=== PATIENT | female | born 1965 | race Hispanic/Latino ===

== ENCOUNTER → 2019-02-04 10:15 | Outpatient (CLI) | payer OTHER, SELFPAY ==
[2019-02-04 11:14] LABS: Add Manual Diff / Slide Review NO; Basophils Absolute Auto 0 /uL (0-100); Basophils Percent Auto 0.7 % (0-2); Eosinophils Absolute Auto 100 /uL (0-450); Eosinophils Percent Auto 2.4 % (2-4); Hematocrit 42.7 % (36-46); Hemoglobin 14.5 g/dL (12.0-16.0); Lymphocytes Absolute Auto 2700 /uL (1100-4500); Lymphocytes Percent Auto 44.3 % (25-40); Mean Corpuscular HGB Conc 33.9 % (30-36); Mean Corpuscular Hemoglobin 31.1 PG (26-34); Mean Corpuscular Volume 91.6 fL (80-100); Monocytes Absolute Auto 400 /uL (0-900); Monocytes Percent Auto 7.3 % (3-14); Neutrophils Absolute Auto 2700 /uL (1500-7000); Neutrophils Percent Auto 45.3 % (50-75); Platelet Count 206 X10^3/uL (150-400); Red Blood Cell Count 4.66 X10^6/uL (4.0-5.2); Red Cell Distribution Width 13.3 % (11.6-14.8)
[2019-02-04 11:24] LABS: Alanine Aminotransferase 24 IU/L (9-52); Albumin 4.4 g/dL (3.5-5.0); Albumin Globulin Ratio 1.4 (1.0-2.8); Alkaline Phosphatase 92 U/L (38-126); Aspartate Aminotransferase 22 IU/L (14-36); Bilirubin Total 0.6 mg/dL (0.2-1.3); Blood Urea Nitrogen 14 mg/dL (7-17); Carbon Dioxide 29 mmol/L (22-32); Chloride 105 mmol/L (98-107); Cholesterol 175 mg/dL (140-199); Estimated Glomerular Filt Rate > 60.0 mL/min (>60); Globulin 3.2 g/dL (1.7-4.1); Glucose 93 mg/dL (70-100); HDL Cholesterol 49 mg/dL (40-60); HEMOLYSIS < 15 (0-50); LDL Cholesterol Calculated 93 mg/dL (<100); Potassium 4.2 mmol/L (3.4-5.1); Sodium 141 mmol/L (137-145); Total Protein 7.6 g/dL (6.3-8.2); Triglycerides 163 mg/dL (35-150)
[2019-02-04 12:38] LABS: Thyroid Stimulating Hormone 1.54 uIU/mL (0.47-4.68)
== END ==
PROVIDERS: PCP Physician Assistant; Visit Provider Physician Assistant
DX: R53.83 Other fatigue (principal); Z13.220 Encounter for screening for lipoid disorders; Z13.6 Encounter for screening for cardiovascular disorders; Z00.00 Encounter for general adult medical examination without abnormal findings
CPT/HCPCS: 36415; 80053; 80061; 84443; 85025

== ENCOUNTER → 2019-11-03 15:30 | Outpatient (CLI) | payer OTHER, SELFPAY ==
[2019-11-04 16:10] LABS: Fecal Immunochemical Test Negative (Negative)
== END ==
PROVIDERS: PCP Nurse Practitioner Family; Referring Provider Nurse Practitioner Family; Visit Provider Nurse Practitioner Family
DX: Z12.11 Encounter for screening for malignant neoplasm of colon (principal)
CPT/HCPCS: 82274

== ENCOUNTER → 2019-11-05 10:59 | Outpatient (CLI) | payer OTHER, SELFPAY ==
--- NOTE | 2019-11-05 11:05 | DI.RAD.S_ITS ---
PROCEDURE: XR RIBS LT 2V INDICATIONS: left upper quadrant pain TECHNIQUE: 2 views of the left ribs were acquired. COMPARISON: None. FINDINGS: Surgical changes and devices: None. Bones and chest wall: No fractures or dislocations. No suspicious bony lesions. Overlying soft tissues appear unremarkable. Lungs and pleura: The visualized lung appears clear. No pleural effusions or pneumothorax are visible. IMPRESSION: Negative left rib series. If there are persistent symptoms or clinical suspicion for pathology, then repeat radiographs or advanced imaging (CT, MRI or bone scan) should be considered for further evaluation. Dictated by: Alex Zabala M.D. on 11/05/2019 at 13:00 Approved by: Alex Zabala M.D. on 11/05/2019 at 13:02
[2019-11-05 11:56] LABS: Add Manual Diff / Slide Review NO; Basophils Absolute Auto 0 /uL (0-100); Basophils Percent Auto 0.8 % (0-2); Eosinophils Absolute Auto 200 /uL (0-450); Eosinophils Percent Auto 2.6 % (2-4); Hematocrit 42.6 % (36-46); Hemoglobin 14.7 g/dL (12.0-16.0); Lymphocytes Absolute Auto 2900 /uL (1100-4500); Lymphocytes Percent Auto 46.8 % (25-40); Mean Corpuscular HGB Conc 34.6 % (30-36); Mean Corpuscular Hemoglobin 31.4 PG (26-34); Mean Corpuscular Volume 90.7 fL (80-100); Monocytes Absolute Auto 500 /uL (0-900); Monocytes Percent Auto 7.5 % (3-14); Neutrophils Absolute Auto 2600 /uL (1500-7000); Neutrophils Percent Auto 42.3 % (50-75); Platelet Count 217 X10^3/uL (150-400); Red Blood Cell Count 4.69 X10^6/uL (4.0-5.2); Red Cell Distribution Width 13.5 % (11.6-14.8); White Blood Cell Count 6.3 X10^3/uL (4.5-11.0)
[2019-11-05 12:00] LABS: Alanine Aminotransferase 58 IU/L (<35); Albumin 4.5 g/dL (3.5-5.0); Albumin Globulin Ratio 1.4 (1.0-2.8); Alkaline Phosphatase 112 U/L (38-126); Aspartate Aminotransferase 30 IU/L (14-36); BUN Creatinine Ratio 22.7 (6-22); Bilirubin Total 0.9 mg/dL (0.2-1.3); Blood Urea Nitrogen 17 mg/dL (7-17); Calcium 9.4 mg/dL (8.4-10.2); Carbon Dioxide 28 mmol/L (22-32); Chloride 104 mmol/L (98-107); Estimated Glomerular Filt Rate > 60.0 mL/min (>60); Globulin 3.3 g/dL (1.7-4.1); Glucose 109 mg/dL (70-100); HEMOLYSIS < 15 (0-50); Potassium 4.3 mmol/L (3.4-5.1); Sodium 140 mmol/L (137-145); Total Protein 7.8 g/dL (6.3-8.2)
[2019-11-05 13:12] LABS: Appearance Urine UA SL CLOUDY; Bilirubin Urine UA NEGATIVE (NEGATIVE); Color Urine UA YELLOW; Glucose Urine UA NEGATIVE (Negative); Ketones Urine UA NEGATIVE (NEGATIVE); Leukocyte Esterase Urine UA 2+ (NEGATIVE); Nitrite Urine UA NEGATIVE (Negative); Occult Blood Urine UA 2+ (Negative); Protein Urine UA NEGATIVE (Negative); Urobilinogen Urine UA 0.2 E.U./dL (0.2)
[2019-11-05 13:18] LABS: pH Urine UA 6.5 (4.5-8.0)
[2019-11-05 13:19] LABS: Bacteria Urine Many (>30); Culture Indicated Urine Cult Not Indicated; RBC Urine 10-30/HPF (0-5/HPF); Squamous Epithelial Cell Urine 10-30 /HPF (0-5/HPF); WBC Urine 10-30/HPF (0-5/HPF)
== END ==
PROVIDERS: PCP Nurse Practitioner Family; Referring Provider Nurse Practitioner Family; Visit Provider Nurse Practitioner Family
DX: R07.81 Pleurodynia (principal); R10.12 Left upper quadrant pain
CPT/HCPCS: 36415; 71100; 80053; 81001; 85025

== ENCOUNTER → 2019-11-05 12:11 | Outpatient (CLI) | payer OTHER, SELFPAY ==
--- NOTE | 2019-11-05 12:12 | DI.US.S_ITS ---
PROCEDURE: US ABDOMEN COMPLETE INDICATIONS: LEFT UPPER QUAD PAIN TECHNIQUE: Real-time scanning was performed of the abdominal and retroperitoneal organs, with image documentation. COMPARISON: None. FINDINGS: Liver: The liver demonstrates diffusely increased echotexture without focal abnormalities consistent with chronic hepatocellular disease/hepatic steatosis. Gallbladder: Gallbladder is normal in sonographic appearance without gallstones, gallbladder wall thickening, pericholecystic fluid, or abnormal sonographic Rodriguez's. Biliary ducts: Intrahepatic bile ducts are non-dilated. Extrahepatic bile duct caliber measures 6 mm. Normal is 6-7 mm or less in diameter, or 10 mm or less post-cholecystectomy. Pancreas: Pancreas not visualized secondary to adjacent bowel gas. Spleen: Spleen is normal in size and homogeneous in echotexture. Kidneys: Kidneys are normal in size and echotexture. Right kidney measures 10.3 cm long; left kidney measures 10.4 cm long. No hydronephrosis or nephrolithiasis. No solid masses. Aorta: Visualized aorta is normal in caliber at less than 3 cm. Iliacs: Proximal common iliac arteries are normal in caliber at less than 2.5 cm. IVC: Intrahepatic inferior vena cava is patent. Miscellaneous: No free abdominal fluid. IMPRESSION: 1. The liver demonstrates diffusely increased echotexture without focal abnormalities consistent with chronic hepatocellular disease/hepatic steatosis. Consider correlation with LFTs. 2. Normal sonographic appearance of the spleen. 3. Unremarkable sonographic evaluation of the gallbladder and kidneys. Dictated by: Alex Zabala M.D. on 11/05/2019 at 13:21 Approved by: Alex Zabala M.D. on 11/05/2019 at 13:23
== END ==
PROVIDERS: PCP Nurse Practitioner Family; Referring Provider Nurse Practitioner Family; Visit Provider Nurse Practitioner Family
DX: R10.12 Left upper quadrant pain (principal); R07.81 Pleurodynia
CPT/HCPCS: 36415; 71100; 76700; 80053; 81001; 85025

== ENCOUNTER → 2019-12-22 09:13 | Outpatient (CLI) | payer OTHER, SELFPAY ==
[2019-12-24 07:40] LABS: COVID19 Sendout Not Detected (Not Detected)
== END ==
PROVIDERS: Registered Nurse; PCP Nurse Practitioner Family; Referring Provider Nurse Practitioner Family; Visit Provider Nurse Practitioner Family
DX: Z11.59 Encounter for screening for other viral diseases (principal)
CPT/HCPCS: 87635

== ENCOUNTER → 2019-12-24 11:35 | Outpatient (CLI) | payer OTHER, SELFPAY ==
[2019-12-24 12:43] LABS: Appearance Urine UA SL CLOUDY; Bilirubin Urine UA NEGATIVE (NEGATIVE); Color Urine UA YELLOW; Glucose Urine UA NEGATIVE (Negative); Ketones Urine UA NEGATIVE (NEGATIVE); Leukocyte Esterase Urine UA 2+ (NEGATIVE); Nitrite Urine UA NEGATIVE (Negative); Occult Blood Urine UA 2+ (Negative); Protein Urine UA NEGATIVE (Negative); Urobilinogen Urine UA 0.2 E.U./dL (0.2)
[2019-12-24 12:50] LABS: Bacteria Urine Many (>30); Culture Indicated Urine Cult Not Indicated; RBC Urine 5-10/HPF (0-5/HPF); Squamous Epithelial Cell Urine 10-30 /HPF (0-5/HPF); WBC Urine 5-10/HPF (0-5/HPF)
[2019-12-24 13:17] LABS: Alanine Aminotransferase 33 IU/L (<35); Albumin 4.5 g/dL (3.5-5.0); Albumin Globulin Ratio 1.3 (1.0-2.8); Alkaline Phosphatase 93 U/L (38-126); Aspartate Aminotransferase 32 IU/L (14-36); Bilirubin Total 0.7 mg/dL (0.2-1.3); Bilirubin Unconjugated 0.8 mg/dL (0.0-1.1); Globulin 3.4 g/dL (1.7-4.1); HEMOLYSIS < 15 (0-50); Total Protein 7.9 g/dL (6.3-8.2)
== END ==
PROVIDERS: PCP Nurse Practitioner Family; Referring Provider Nurse Practitioner Family; Visit Provider Nurse Practitioner Family
DX: R93.5 Abnormal findings on diagnostic imaging of other abdominal regions, including retroperitoneum (principal); R74.0 Nonspecific elevation of levels of transaminase and lactic acid dehydrogenase [LDH]; R31.9 Hematuria, unspecified
CPT/HCPCS: 36415; 80076; 81001

== ENCOUNTER → 2019-12-30 10:02 | Outpatient (CLI) | payer OTHER, SELFPAY ==
[2019-12-30 13:50] LABS: Appearance Urine UA CLEAR; Bilirubin Urine UA NEGATIVE (NEGATIVE); Color Urine UA YELLOW; Glucose Urine UA NEGATIVE (Negative); Ketones Urine UA NEGATIVE (NEGATIVE); Leukocyte Esterase Urine UA 1+ (NEGATIVE); Nitrite Urine UA NEGATIVE (Negative); Occult Blood Urine UA 2+ (Negative); Protein Urine UA NEGATIVE (Negative); Urobilinogen Urine UA 0.2 E.U./dL (0.2)
[2019-12-30 13:56] LABS: pH Urine UA 6.5 (4.5-8.0)
[2019-12-30 14:09] LABS: RBC Urine 1-5/HPF (0-5/HPF); Squamous Epithelial Cell Urine 1-5 /HPF (0-5/HPF); WBC Urine 5-10/HPF (0-5/HPF)
[2019-12-30 14:10] LABS: Bacteria Urine Many (>30); Culture Indicated Urine Specimen Cultured
== END ==
PROVIDERS: PCP Nurse Practitioner Family; Visit Provider Nurse Practitioner Family
DX: R31.9 Hematuria, unspecified (principal)
CPT/HCPCS: 81001; 87086

== ENCOUNTER → 2020-04-22 08:52 | Outpatient (CLI) | payer OTHER, SELFPAY ==
[2020-04-23 07:47] LABS: COVID19 Sendout Not Detected (Not Detect)
== END ==
PROVIDERS: PCP Nurse Practitioner Family; Visit Provider Physician Assistant
DX: Z11.59 Encounter for screening for other viral diseases (principal)
CPT/HCPCS: 87635

== ENCOUNTER → 2020-08-27 09:59 | Outpatient (CLI) | payer OTHER, SELFPAY ==
[2020-08-27 10:40] LABS: Add Manual Diff / Slide Review NO; Basophils Absolute Auto 0 /uL (0-100); Basophils Percent Auto 0.5 % (0-2); Eosinophils Absolute Auto 200 /uL (0-450); Eosinophils Percent Auto 2.4 % (2-4); Hematocrit 42.7 % (36-46); Hemoglobin 14.3 g/dL (12.0-16.0); Lymphocytes Absolute Auto 2300 /uL (1100-4500); Lymphocytes Percent Auto 35.5 % (25-40); Mean Corpuscular HGB Conc 33.4 % (30-36); Mean Corpuscular Hemoglobin 30.5 PG (26-34); Mean Corpuscular Volume 91.2 fL (80-100); Monocytes Absolute Auto 400 /uL (0-900); Monocytes Percent Auto 6.8 % (3-14); Neutrophils Absolute Auto 3600 /uL (1500-7000); Neutrophils Percent Auto 54.8 % (50-75); Platelet Count 208 X10^3/uL (150-400); Red Blood Cell Count 4.68 X10^6/uL (4.0-5.2); Red Cell Distribution Width 13.4 % (11.6-14.8); White Blood Cell Count 6.5 X10^3/uL (4.5-11.0)
[2020-08-27 10:50] LABS: Prothrombin Time 11.5 SECONDS (10.1-12.7)
[2020-08-27 11:05] LABS: Alanine Aminotransferase 35 IU/L (<35); Albumin 4.3 g/dL (3.5-5.0); Albumin Globulin Ratio 1.5 (1.0-2.8); Alkaline Phosphatase 82 U/L (38-126); Aspartate Aminotransferase 25 IU/L (14-36); BUN Creatinine Ratio 21.1 (6-22); Bilirubin Total 0.9 mg/dL (0.2-1.3); Blood Urea Nitrogen 16 mg/dL (7-17); Calcium 8.9 mg/dL (8.4-10.2); Carbon Dioxide 29 mmol/L (22-32); Chloride 107 mmol/L (98-107); Estimated Glomerular Filt Rate > 60.0 mL/min (>60); Globulin 2.9 g/dL (1.7-4.1); Glucose 119 mg/dL (70-100); HEMOLYSIS < 15 (0-50); Potassium 3.9 mmol/L (3.4-5.1); Sodium 139 mmol/L (137-145); Total Protein 7.2 g/dL (6.3-8.2)
[2020-08-27 12:03] LABS: Hep C Virus Ab w/Reflex Quant NEGATIVE s/c (NEGATIVE)
== END ==
PROVIDERS: PCP Nurse Practitioner Family; Referring Provider Physician Assistant; Visit Provider Physician Assistant
DX: R94.5 Abnormal results of liver function studies (principal); R10.11 Right upper quadrant pain
CPT/HCPCS: 36415; 80053; 85025; 85610; 86803

== ENCOUNTER → 2020-09-17 11:44 | Outpatient (CLI) | payer OTHER, SELFPAY | PROVIDERS: PCP Nurse Practitioner Family; Visit Provider Physician Assistant | DX: N34.3 Urethral syndrome, unspecified (principal) | CPT/HCPCS: 87086 ==

== ENCOUNTER 2020-09-26 12:01 | Emergency (ER) | payer OTHER, SELFPAY ==
[2020-09-26 12:33] VITALS: BP 141/64; PULSE 93; RESP 18; O2SAT 100; BMI 30.1
--- NOTE | 2020-09-26 13:23 | ED.FEMALEGU ---
HPI - Female Genitourinary General Chief complaint: Urogenital-Female Stated complaint: bleeding vaginal area / in pain Time Seen by Provider: 09/26/20 13:08 Source: patient Mode of arrival: Family Vehicle Limitations: no limitations History of Present Illness HPI Narrative: This is a 54-year-old female comes emergency department with complaint of dysuria, frequency and sense of urgency. Patient states she has had increasing abdominal pain over the last several days. She relates that she has had some generalized abdominal pain in her upper abdomen for a couple months and has been slowly working through the process of getting evaluation. Ten day she developed lower pelvic pain that was radiating to her right flank. Patient states she has felt a little warm but did not have a temperature greater than 100.4 at home. Patient has not had any nausea or vomiting she states she has had normal bowel movements. She states she had noted some vaginal discharge there is no discoloration or odor. Patient states she has not been sexually active for at least 12 years. She was in the shower today when she had significant discomfort, urinated which did make her feel better. She has noticed some blood in her urine when she wipes and in the urine in the toilet. Patient states she is not on any medications regularly. She states she was seen in the walk-in clinic earlier in the week, told initially she had a bladder infection then was call the same day and told that she did not. Patient states she has had a hysterectomy. Related Data Home Medications Medication Instructions Recorded Confirmed cholecalciferol (vitamin D3) 25 2,000 unit PO DAILY 02/19/19 09/17/20 mcg (1,000 unit) capsule magnesium oxide 500 mg capsule 500 mg PO DAILY cap 02/19/19 09/17/20 vitamin B complex 1 cap PO DAILY 02/19/19 09/17/20 vitamin E 400 unit capsule 400 unit PO DAILY 02/19/19 09/17/20 Previous Rx's Medication Instructions Recorded omeprazole 20 mg capsule,delayed 20 mg PO DAILY #20 cap 09/10/20 release sulfamethoxazole-trimethoprim 1 tab PO Q12H #20 tab 09/26/20 [Bactrim DS] Allergies Allergy/AdvReac Type Severity Reaction Status Date / Time codeine AdvReac Mild RASH AND Verified 09/26/20 12:36 GROGGY FEELING Review of Systems Review of Systems ROS Unobtainable: All systems reviewed & are unremarkable except as noted in HPI and below Patient History Medical History Change in stool Fatty liver Hematuria Left upper quadrant pain UTI (urinary tract infection) Family History Brother Age: 38 Hyperlipidemia Mother Age: 72 Hypothyroid tobacco type: cigarettes alcohol intake frequency: 0-2 drinks per day Substance Use Type: does not use Exam Narrative Exam Narrative: GENERAL: Alert and oriented x three, well-nourished female in mild to moderate distress. HEENT: Head normocephalic, atraumatic, EOMI, pupils reactive, face symmetric, moist mucous membranes NECK: Supple, full range of motion CARDIOVASCULAR: Regular rate and rhythm without murmurs, rubs or gallops. RESPIRATORY: Breath sounds equal bilaterally, no wheezes rales or rhonchi. ABDOMEN: Soft, mild suprapubic tenderness. Normoactive bowel sounds all 4 quadrants. No guarding or rebound, rigidity, no mass : Moderate right Right CVA tenderness, mild left CVA tenderness. EXTREMITIES: Normal range of motion, no clubbing or edema. Neurovascularly intact NEUROLOGICAL: Cranial nerves II through XII grossly intact. Moving all extremities SKIN: Warm, dry, no petechiae, no rashes or lesions. Initial Vital Signs Initial Vital Signs: Vital Signs Pulse Rate 93 H 09/26/20 12:33 Respiratory Rate 18 09/26/20 12:33 Blood Pressure 141/64 H 09/26/20 12:33 Pulse Oximetry 100 09/26/20 12:33 Course Orders Ordered: ED Orders 09/26/20 12:14 Urine Culture Stat Urine Microscopic Stat Discontinued Medications Ketorolac Tromethamine (Ketorolac 60 Mg/2 Ml Vial) 30 mg IM NOW ONE Stop: 09/26/20 13:53 Last Admin: 09/26/20 14:14 Dose: 30 mg Documented by: KANIKA Phenazopyridine HCl (Phenazopyridine 100 Mg Tablet) 200 mg PO NOW ONE Stop: 09/26/20 13:53 Last Admin: 09/26/20 14:13 Dose: 200 mg Documented by: KANIKA Trimethoprim/Sulfamethoxazole (Trimeth/Sulfa 160/800 (Ds) Tablet) 1 tab PO NOW ONE Stop: 09/26/20 13:53 Last Admin: 09/26/20 14:14 Dose: 1 tab Documented by: KANIKA Vital Signs Vital signs: Vital Signs - 8 hr 09/26/20 12:33 09/26/20 14:28 Pulse Rate 93 H 84 Respiratory Rate 18 Blood Pressure 141/64 H 132/78 Pulse Oximetry 100 99 MDM - Female Genitourinary Lab Data Attestation: I reviewed the patient's lab results. Labs: Lab Results 09/26/20 Range/Units 12:14 Urine RBC >100/hpf H (0-5/HPF) Urine WBC 10-30/hpf H (0-5/HPF) Ur Squamous Epith Cells 0-1 /hpf (0-5/HPF) Amorphous Sediment 1+ Urine Bacteria Few (2-10) H (None) Ur Culture Indicated? Specimen cultured Urine Dip Bedside Urine Glucose Negative Bedside Urine Bilirubin - Negative Bedside Urine Ketone - Negative Urine Specific [place] 1.015 Bedside Urine Occult Blood +++ Bedside Urine pH 8.0 Bedside Urine Protein +++ 300 Bedside Urine Urobilinogen - Negative Bedside Urine Nitrite - Negative Bedside Urine Leukocytes +++ 500 Esterase MDM Narrative Medical decision making narrative: 54-year-old female with complaint of increasing abdominal and flank pain greater on the right but also present on the left with hematuria, urgency, frequency and dysuria. Patient has been afebrile. We initially discussed pelvic exam but after further discussion suspect a pyelonephritis as the cause of her symptoms today. Discharge Plan Departure Patient Disposition: Home Clinical Impression: Pyelonephritis Instructions: DI for Kidney Infection Activity Restrictions/Additional Instructions: Follow up in the next 24-48 hours if you are not having any improvement in your symptoms Take antibiotics until completely gone. Prescription sent to [facility] in [place]. Take pyridium 1 tablet every 8 hours as needed for bladder spasm. This medication will make your urine bright orange. You may take ibuprofen up to 600 mg every 6 hours for pain and or Tylenol up to a 1000 mg every 8 hours as needed for pain. You may take this with the Pyridium if needed. Please return for fever greater than 100.4 F, worsening abdominal, back or flank pain, persistent vomiting inability to urinate, black or bloody stools, lightheadedness or passing or other new or concerning symptoms. Prescriptions: New sulfamethoxazole-trimethoprim [Bactrim DS] 800-160 mg tablet 1 tab PO Q12H Qty: 20 RF: 0 No Action magnesium oxide 500 mg capsule 500 mg PO DAILY RF: 0 cholecalciferol (vitamin D3) 1,000 unit capsule 2,000 unit PO DAILY RF: 0 vitamin B complex capsule 1 cap PO DAILY RF: 0 vitamin E 400 unit capsule 400 unit PO DAILY RF: 0 omeprazole 20 mg capsule,delayed release(DR/EC) 20 mg PO DAILY Qty: 20 RF: 0 Referrals: Pola Rene ARNP [Primary Care Provider] - Stand Alone Forms: Work Release Note
--- NOTE | 2020-09-26 13:25 | PC.NURSE ---
reports seen in [facility] and treated for UTI. did not finish ABX.
[2020-09-26 13:28] LABS: Amorphous Sediment Urine 1+; Bacteria Urine Few (2-10); RBC Urine >100/HPF (0-5/HPF); Squamous Epithelial Cell Urine 0-1 /HPF (0-5/HPF); WBC Urine 10-30/HPF (0-5/HPF)
[2020-09-26 13:29] LABS: Culture Indicated Urine Specimen Cultured
[2020-09-26] MEDS: PHENAZOPYRIDINE 100 MG TABLET 200 MG PO (14:13)
[2020-09-26] MEDS: TRIMETH/SULFA 160/800 (DS) TABLET 1 TAB PO (14:14)
[2020-09-26] MEDS: KETOROLAC 60 MG/2 ML VIAL 30 MG IM (14:14)
[2020-09-26 14:28] VITALS: BP 132/78; PULSE 84; O2SAT 99
== END 2020-09-26 14:31 | disposition home or self-care (01) ==
PROVIDERS: Emergency Provider Emergency Medicine; PCP Nurse Practitioner Family
DX: R10.9 Unspecified abdominal pain (principal); N12 Tubulo-interstitial nephritis, not specified as acute or chronic
CPT/HCPCS: 81003; 81015; 87077; 87086; 87186; 96372; 99281; 99283; J1885

== ENCOUNTER → 2021-10-17 15:26 | Outpatient (CLI) | payer OTHER, SELFPAY | PROVIDERS: PCP Nurse Practitioner Family; Visit Provider Student in an Organized Health Care Education/Training Program | DX: R30.0 Dysuria (principal) | CPT/HCPCS: 87086 ==

== ENCOUNTER → 2022-02-02 16:15 | Outpatient (CLI) | payer OTHER, SELFPAY ==
[2022-02-02 16:58] LABS: Add Manual Diff / Slide Review NO; Basophils Absolute Auto 100 /uL (0-100); Basophils Percent Auto 0.7 % (0-2); Eosinophils Absolute Auto 100 /uL (0-450); Eosinophils Percent Auto 1.3 % (2-4); Hematocrit 42.9 % (36-46); Hemoglobin 14.4 g/dL (12.0-16.0); Lymphocytes Absolute Auto 2900 /uL (1100-4500); Lymphocytes Percent Auto 36.6 % (25-40); Mean Corpuscular HGB Conc 33.7 % (30-36); Mean Corpuscular Hemoglobin 30.3 PG (26-34); Mean Corpuscular Volume 89.9 fL (80-100); Monocytes Absolute Auto 600 /uL (0-900); Monocytes Percent Auto 7.2 % (3-14); Neutrophils Absolute Auto 4200 /uL (1500-7000); Neutrophils Percent Auto 54.2 % (50-75); Platelet Count 204 X10^3/uL (150-400); Red Blood Cell Count 4.77 X10^6/uL (4.0-5.2); Red Cell Distribution Width 13.3 % (11.6-14.8); White Blood Cell Count 7.8 X10^3/uL (4.5-11.0)
[2022-02-02 17:19] LABS: Alanine Aminotransferase 34 IU/L (<35); Albumin 4.9 g/dL (3.5-5.0); Alkaline Phosphatase 122 U/L (38-126); Aspartate Aminotransferase 29 IU/L (14-36); Bilirubin Total 0.6 mg/dL (0.2-1.3); Blood Urea Nitrogen 20 mg/dL (7-17); Calcium 9.5 mg/dL (8.4-10.2); Carbon Dioxide 29 mmol/L (22-32); Chloride 98 mmol/L (98-107); Estimated Glomerular Filt Rate > 60 mL/min (>60); Globulin 2.5 g/dL (1.7-4.1); Glucose 93 mg/dL (70-100); HEMOLYSIS < 15 (0-50); Potassium 4.3 mmol/L (3.4-5.1); Sodium 137 mmol/L (137-145); Total Protein 7.4 g/dL (6.3-8.2)
[2022-02-02 17:47] LABS: TSH w/ Reflex to FT4 1.87 uIU/mL (0.47-4.68)
== END ==
PROVIDERS: PCP Student in an Organized Health Care Education/Training Program; Referring Provider Student in an Organized Health Care Education/Training Program; Visit Provider Student in an Organized Health Care Education/Training Program
DX: R10.11 Right upper quadrant pain (principal); R42 Dizziness and giddiness
CPT/HCPCS: 36415; 80053; 84443; 85025

== ENCOUNTER 2022-08-09 18:25 | Emergency (ER) | payer OTHER, SELFPAY ==
[2022-08-09 18:37] VITALS: BP 146/86; PULSE 81; RESP 15; TEMP 36.1; O2SAT 99; BMI 31.8
[2022-08-09 19:03] LABS: Add Manual Diff / Slide Review NO; Basophils Absolute Auto 100 /uL (0-100); Basophils Percent Auto 1.1 % (0-2); Eosinophils Absolute Auto 200 /uL (0-450); Eosinophils Percent Auto 2.6 % (2-4); Hemoglobin 14.6 g/dL (12.0-16.0); Lymphocytes Absolute Auto 3900 /uL (1100-4500); Lymphocytes Percent Auto 42.5 % (25-40); Mean Corpuscular HGB Conc 33.9 % (30-36); Mean Corpuscular Hemoglobin 30.2 PG (26-34); Mean Corpuscular Volume 89.3 fL (80-100); Monocytes Absolute Auto 700 /uL (0-900); Monocytes Percent Auto 7.3 % (3-14); Neutrophils Absolute Auto 4200 /uL (1500-7000); Neutrophils Percent Auto 46.5 % (50-75); Platelet Count 212 X10^3/uL (150-400); Red Blood Cell Count 4.81 X10^6/uL (4.0-5.2); Red Cell Distribution Width 13.4 % (11.6-14.8); White Blood Cell Count 9.1 X10^3/uL (4.5-11.0)
[2022-08-09 19:13] LABS: Alanine Aminotransferase 34 IU/L (<35); Albumin 4.5 g/dL (3.5-5.0); Albumin Globulin Ratio 1.3 (1.0-2.8); Alkaline Phosphatase 117 U/L (38-126); Aspartate Aminotransferase 27 IU/L (14-36); BUN Creatinine Ratio 17.4 (6-22); Bilirubin Total 0.5 mg/dL (0.2-1.3); Blood Urea Nitrogen 24 mg/dL (7-17); Calcium 8.8 mg/dL (8.4-10.2); Carbon Dioxide 27 mmol/L (22-32); Chloride 102 mmol/L (98-107); Estimated Glomerular Filt Rate 45 mL/min (>60); Globulin 3.5 g/dL (1.7-4.1); Glucose 100 mg/dL (70-100); Lipase 154 U/L (23-300); Sodium 138 mmol/L (137-145)
[2022-08-09 19:24] LABS: HEMOLYSIS 53 (0-50)
[2022-08-09 19:25] LABS: Potassium 4.1 mmol/L (3.4-5.1)
[2022-08-09 19:36] VITALS: BP 142/80; PULSE 77; O2SAT 99
--- NOTE | 2022-08-09 19:52 | ED.ABDPAIN ---
HPI - Abdominal Pain General Chief Complaint: Abdominal Pain Stated Complaint: Upper ABD pain Time Seen by Provider: 08/09/22 19:35 Source: patient Mode of arrival: Ambulatory History of Present Illness HPI narrative: Patient is a 56-year-old female history of what sounds like irritable bowel syndrome presenting today with 3 days of nausea vomiting diarrhea abdominal pain. He says she is had these episodes before she has right upper quadrant pain left upper quadrant pain vomits. She says the pain was pretty intense was brought her to the ER. She has been able to keep fluids down she does have some medicine at home. No fevers or chills. She is not dizzy or lightheaded. She denies any chest pain or palpitations. No fever or chills. She has a GI specialist whom she follows with. She denies any marijuana use. In fact where she works people come in who smell of marijuana makes her nauseous. Related Data Home Medications Medication Instructions Recorded Confirmed cholecalciferol (vitamin D3) 25 2,000 unit PO DAILY 02/19/19 02/02/22 mcg (1,000 unit) capsule magnesium oxide 500 mg capsule 500 mg PO DAILY 02/19/19 02/02/22 Allergies Allergy/AdvReac Type Severity Reaction Status Date / Time codeine AdvReac Mild RASH AND Verified 08/09/22 18:37 GROGGY FEELING Review of Systems Review of Systems ROS Unobtainable: All systems reviewed & are unremarkable except as noted in HPI and below Patient History Medical History Change in stool Fatty liver Hematuria Left upper quadrant pain UTI (urinary tract infection) Family History Brother Age: 40 Hyperlipidemia Mother Age: 74 Hypothyroid Social History Smoking Status: Current every day smoker Tobacco: How many years used: 9 quit status: considering quitting (I've considered november) second hand exposure: No alcohol intake: former (I was drinking a pint a day of hard liquor, I quit 7 years ago, I went to tx.) substance use type: does not use Smoking Status: Current every day smoker tobacco type: cigarettes alcohol intake frequency: holidays/special occasions only Substance Use Type: does not use Exam Initial Vital Signs Initial Vital Signs: Vital Signs Temperature 97.0 F L 08/09/22 18:37 Pulse Rate 81 08/09/22 18:37 Respiratory Rate 15 08/09/22 18:37 Blood Pressure 146/86 H 08/09/22 18:37 Pulse Oximetry 99 08/09/22 18:37 Oxygen Delivery Method 08/09/22 18:37 GENERAL: Alert pleasant 56-year-old female and in no acute distress. HEENT: Head atraumatic,EOMI, pupils reactive, face symmetric, moist mucous membranes CARDIOVASCULAR: Regular rate and rhythm without murmurs, rubs or gallops. RESPIRATORY: Breath sounds equal bilaterally, no wheezes rales or rhonchi. ABDOMEN: Soft, no real right upper quadrant tenderness or left upper quadrant tenderness no lower abdominal tenderness no guarding no rebound no distention : No CVA tenderness EXTREMITIES: Normal range of motion, no clubbing or edema. Neurovascularly intact NEUROLOGICAL: Alert and oriented x4.Normal gait and speech. SKIN: Warm, dry, no laceration, no petechiae, no rashes or lesions. Course Orders Ordered: Discontinued Medications Ondansetron HCl (Ondansetron 4 Mg/2 Ml Inj) 4 mg IV NOW PRN PRN Reason: Nausea And Vomiting Vital Signs Vital signs: Vital Signs - 8 hr 08/09/22 20:00 08/09/22 20:00 08/09/22 20:28 Pulse Rate 76 73 Respiratory Rate 21 Blood Pressure 112/81 Pulse Oximetry 99 100 08/09/22 20:28 08/09/22 20:30 Pulse Rate 73 Respiratory Rate Blood Pressure 127/76 Pulse Oximetry 100 MDM - Abdominal Pain Lab Data 08/09/22 18:45 08/09/22 18:45 Labs: Lab Results 08/09/22 08/09/22 Range/Units 18:45 18:45 WBC 9.1 (4.5-11.0) X10^3/uL RBC 4.81 (4.0-5.2) X10^6/uL Hgb 14.6 (12.0-16.0) g/dL Hct 43.0 (36-46) % MCV 89.3 (80-100) fL MCH 30.2 (26-34) PG MCHC 33.9 (30-36) % RDW 13.4 (11.6-14.8) % Plt Count 212 (150-400) X10^3/uL Neut % (Auto) 46.5 L (50-75) % Lymph % (Auto) 42.5 H (25-40) % [place] % (Auto) 7.3 (3-14) % Eos % (Auto) 2.6 (2-4) % Baso % (Auto) 1.1 (0-2) % Neut # (Auto) 4200 (9841-3159) /uL Lymph # (Auto) 3900 (0747-2008) /uL [place] # (Auto) 700 (0-900) /uL Eos # (Auto) 200 (0-450) /uL Baso # (Auto) 100 (0-100) /uL Sodium 138 (137-145) mmol/L Potassium 4.1 (3.4-5.1) mmol/L Chloride 102 (98-107) mmol/L Carbon Dioxide 27 (22-32) mmol/L BUN 24 H (7-17) mg/dL Creatinine 1.38 H (0.52-1.04) mg/dL Estimated GFR 45 L (>60) mL/min BUN/Creatinine Ratio 17.4 (6-22) Glucose 100 (70-100) mg/dL Calcium 8.8 (8.4-10.2) mg/dL Total Bilirubin 0.5 (0.2-1.3) mg/dL AST 27 (14-36) IU/L ALT 34 (<35) IU/L Alkaline Phosphatase 117 (38-126) U/L Total Protein 8.0 (6.3-8.2) g/dL Albumin 4.5 (3.5-5.0) g/dL Globulin 3.5 (1.7-4.1) g/dL Albumin/Globulin Ratio 1.3 (1.0-2.8) Lipase 154 (23-300) U/L ECG Data Interpretation: Normal sinus rhythm rate 71 AL interval 142 QRS [address] changes no T-wave inversions MDM Narrative Medical decision making narrative: Patient 56-year-old female has chronic ongoing abdominal issues. Has had a severe episode this week over last couple of days. She is no longer in pain. Appears quite comfortable. She says pain has let up. No leukocytosis. Creatinine today is mildly elevated 1.38 previously 1 year ago is 0.74. Electrolytes are within normal limits potassium of 4.1 carbon dioxide 27. Patient says that she has had workup of her gallbladder before. She really isn't tender in her right upper quadrant she is offered an ultrasound of her gallbladder. However she declines this time. She is offered IV fluids however she says she is drinking. She is offered a home Zofran prescription she declines. She is requesting a work note. She is been off all week and needs tomorrow off as well. Patient is stable vitals not tachycardic or hypotensive. Likely slightly dehydrated with an elevated creatinine secondary to vomiting and diarrhea. But abdominal exam is overall benign. Discharge Plan Departure Patient Disposition: Home Clinical Impression: Gastroenteritis Instructions: DI for Dehydration -- Adult, DI for Viral Gastroenteritis -- Adult Activity Restrictions/Additional Instructions: *You have been diagnosed with gastroenteritis, mild dehydration *What to do: At this time I do recommend that you increase your fluid intake with Gatorade or Gatorade like product *Continue to take medications as directed *Follow up with your primary care provider in 2-3 days or call [phone] *Return to ER if you should have increasing abdominal pain persistent vomiting unable to keep any fluids in or any new, worsening or concerning symptoms Prescriptions: No Action magnesium oxide 500 mg capsule 500 mg PO DAILY cholecalciferol (vitamin D3) 1,000 unit capsule 2,000 unit PO DAILY Referrals: Pola Rene ARNP [Primary Care Provider] - Stand Alone Forms: Patient Portal/API, Work Release Note
[2022-08-09 20:00] VITALS: BP 112/81; PULSE 76; RESP 21; O2SAT 99
[2022-08-09 20:28] VITALS: BP 127/76; PULSE 73; O2SAT 100
[2022-08-09 20:30] VITALS: PULSE 73; O2SAT 100
== END 2022-08-09 20:33 | disposition home or self-care (01) ==
PROVIDERS: Emergency Provider Emergency Medicine; PCP Nurse Practitioner Family
DX: K52.9 Noninfective gastroenteritis and colitis, unspecified (principal); E86.0 Dehydration; R03.0 Elevated blood-pressure reading, without diagnosis of hypertension
CPT/HCPCS: 36415; 80053; 83690; 85025; 93005; 99283

== ENCOUNTER 2023-07-11 09:05 | Day surgery (SDC) | payer OTHER, SELFPAY ==
[2023-07-11] MEDS: LACTATED RINGERS 1,000 ML 42 ML IV (09:44)
[2023-07-11 09:52] VITALS: BP 113/78; PULSE 73; RESP 16; TEMP 36.4; O2SAT 98; BMI 31.8
--- NOTE | 2023-07-11 10:37 | P.HP_ITS ---
History of Present Illness History of Present Illness Date Patient Seen: 07/11/23 Time Patient Seen: 10:37 Chief complaint: EGD/Colonoscopy Narrative: H/o peptic ulcer and colon polyps. Having same symptoms now of dyspepsia, diarrhea. Carries the diagnosis of IBS [facility] Medical History UTI (urinary tract infection) Fatty liver Change in stool Hematuria Left upper quadrant pain Family History Brother Age: 41 Hyperlipidemia Mother Age: 75 Hypothyroid Social History household members: family Smoking Status: Current every day smoker Tobacco: How many years used: 9 quit status: considering quitting (I've considered may times) second hand exposure: No alcohol intake: former substance use type: does not use Meds Home Medications and Allergies Home Medications Medication Instructions Recorded Confirmed Type albuterol sulfate 90 mcg/actuation 90 mcg inhalation PRN PRN Wheezing 07/11/23 07/11/23 History breath activated powder inhaler Allergies Allergy/AdvReac Type Severity Reaction Status Date / Time codeine AdvReac Mild RASH AND Verified 07/11/23 09:49 GROGGY FEELING Exam Vital Signs (past 8 hours): - 07/11/23 09:52 Temperature 97.5 F L Pulse Rate 73 Respiratory Rate 16 Blood Pressure 113/78 Pulse Oximetry 98 Oxygen Delivery Method Room Air Oxygen Delivery Method Room Air Const General: cooperative, healthy appearing and comfortable [facility] Head: normocephalic and atraumatic Ears: hearing grossly normal bilaterally Eyes Sclera: sclerae normal Neck Neck: trachea midline and No JVD Resp Effort & Inspection: normal respiratory effort and able to speak in complete sentences Cardio Rate: regular rate Rhythm: regular rhythm GI Palpation: soft and No tender Skin General: atrophy Neuro General: patient alert, patient awake and patient oriented x3 Cognition: normal cognition Psych Appearance: grossly normal Mental Status: mental status grossly normal Affect: normal affect Judgment: judgment good Assessment & Plan Assessment & Plan narrative: Recurrence of PUD symptoms and change in bowel habits. Plan: Pt request no anesthesia because I am paying out of pocket. She will accept anesthesia if study can not be completed w/o it. Diagnostic EGD and Colonoscopy. Time Spent With Patient Time with patient: less than 30 minutes
[2023-07-11] MEDS: fentaNYL 250 MCG/5 ML INJ 125 MCG IV (11:13)
[2023-07-11] MEDS: MIDAZOLAM 5 MG/5 ML VIAL 8 MG IV (11:14)
--- NOTE | 2023-07-11 11:23 | P.OP.EGD&C_ITS ---
Operative Date/Time/Diagnoses Date of procedure: 07/11/23 Time of procedure: 11:24 Pre-op diagnosis: EGD and colonoscopy, diagnostic for dyspepsia with history of peptic ulcer disease and change in bowel habits Post-op diagnosis: same Procedure & Clinicians Study performed: EGD and colonoscopy with moderate sedation Same procedure as scheduled: Yes Indications: Change in bowel habits, history of peptic ulcer disease with dyspepsia currently Surgeon: Vicky Latif Procedure Notes Procedure in detail: Preop diagnosis: History of peptic ulcer disease now with dyspepsia, change in bowel habits Postop diagnosis: Same Operative procedure: EGD and colonoscopy with moderate sedation Surgeon: Arlette Latif MD Findings: Normal EGD with mild duodenitis but no ulcers. Normal colonoscopy with a poor bowel prep. No masses or polyps identified, descending colon with diverticulosis Anesthetic: 8 mg Versed 150 mcg of fentanyl Procedure: Patient placed in lateral position. Anesthetic was given. Scope was inserted into the esophagus advanced into the stomach. With insufflation identified at the pylorus intubated into the duodenal. Insufflation and extraction scope including retroflex showed only a mild duodenitis. No ul cerations We then proceeded with colonoscopy. Rectal exam performed showing normal tone no masses. Colonoscope inserted into the rectum and advanced to ileocecal valve with minimal difficulty. We had a poor bowel prep. Retroflex was included in the rectum. Impression: Mild duodenitis, otherwise normal stomach and esophagus. Colonoscopy had a poor bowel prep however no large masses or polyps were identified. No changes of the mucosa. There is a segment in the descending colon that is rigid which I attribute to the diverticulosis seen in the descending colon Plan: Repeat colonoscopy in 10 years unless otherwise indicated by change in clinical condition. I would continue with a [id number] proton pump inhibitor daily for 8 weeks Findings: diverticulosis and other findings (Mild duodenitis) Specimen(s): none sent Complications: none Post-procedure Recommendations: Colonscopy in 10 years Follow up: as needed Disposition: PACU
[2023-07-11 11:25] VITALS: BP 104/60; PULSE 72; RESP 16; TEMP 36.4; O2SAT 100
[2023-07-11 11:30] VITALS: BP 94/69; PULSE 68; RESP 16; O2SAT 100
[2023-07-11] MEDS: LIDOCAINE VISCOUS 2% 15 ML SOLUTION PO (11:34)
[2023-07-11 11:35] VITALS: BP 122/82; PULSE 69; RESP 17; TEMP 36.9; O2SAT 100
== END 2023-07-11 11:45 | disposition home or self-care (01) ==
PROVIDERS: PCP Family Medicine; Referring Provider Surgery; Visit Provider Surgery
PROC: 0DJ08ZZ Inspection of Upper Intestinal Tract, Via Natural or Artificial Opening Endoscopic (ICD-10-PCS; CPT 43235; principal; 2023-07-11 10:15)
PROC: 0DJD8ZZ Inspection of Lower Intestinal Tract, Via Natural or Artificial Opening Endoscopic (ICD-10-PCS; CPT 45378; 2023-07-11 10:15)
DX: R19.4 Change in bowel habit (principal); R10.13 Epigastric pain; Z87.11 Personal history of peptic ulcer disease; K29.80 Duodenitis without bleeding; K57.30 Diverticulosis of large intestine without perforation or abscess without bleeding
CPT/HCPCS: 45378; 43235; J2250; J3010

== ENCOUNTER → 2023-07-23 16:24 | Outpatient (CLI) | payer OTHER, SELFPAY ==
[2023-07-23 18:11] LABS: Appearance Urine UA CLEAR; Bilirubin Urine UA NEGATIVE (NEGATIVE); Color Urine UA YELLOW; Glucose Urine UA TRACE g/dL (Negative); Ketones Urine UA NEGATIVE (NEGATIVE); Leukocyte Esterase Urine UA 2+ (NEGATIVE); Nitrite Urine UA POSITIVE (Negative); Occult Blood Urine UA 2+ (Negative); Protein Urine UA TRACE (Negative); Specific Gravity Urine UA 1.015 (1.000-1.035)
[2023-07-23 18:19] LABS: Bacteria Urine Moderate (10-30); RBC Urine 1-5/HPF (0-5/HPF); Squamous Epithelial Cell Urine 5-10 /HPF (0-5/HPF); WBC Urine 5-10/HPF (0-5/HPF)
[2023-07-23 18:20] LABS: Amorphous Sediment Urine 1+; Culture Indicated Urine Specimen Cultured
== END ==
LOC: LAB 16:24
PROVIDERS: PCP Family Medicine; Referring Provider Family Medicine; Visit Provider Family Medicine
DX: R30.0 Dysuria (principal)
CPT/HCPCS: 81001; 87077; 87086; 87186

== ENCOUNTER → 2024-09-30 08:46 | Outpatient (CLI) | payer OTHER, SELFPAY | LOC: LAB 08:47 | PROVIDERS: PCP Family Medicine; Referring Provider Internal Medicine; Visit Provider Internal Medicine | DX: K76.0 Fatty (change of) liver, not elsewhere classified (principal) | CPT/HCPCS: 36415; 82172; 82247; 82465; 82947; 82977; 83010; 83883; 84450; 84460 ==

== ENCOUNTER 2025-01-26 08:00 | Emergency (ER) | payer OTHER, SELFPAY ==
[2025-01-26 08:09] VITALS: BP 130/85; PULSE 74; RESP 20; TEMP 36.5; O2SAT 99; BMI 29.2
[2025-01-26 08:46] LABS: INR 1.0 (0.9-1.3); Prothrombin Time 11.6 SECONDS (9.4-12.5)
[2025-01-26 08:48] LABS: PTT Partial Thromboplastin Tim 34 SECONDS (25.1-36.5)
[2025-01-26 08:49] LABS: Alanine Aminotransferase 44 IU/L (<35); Albumin 5.0 g/dL (3.5-5.0); Albumin Globulin Ratio 1.4 (1.0-2.8); Alkaline Phosphatase 102 U/L (38-126); Blood Urea Nitrogen 12 mg/dL (7-17); Calcium 9.3 mg/dL (8.4-10.2); Carbon Dioxide 28 mmol/L (22-32); Chloride 103 mmol/L (98-107); Estimated Glomerular Filt Rate > 60 mL/min (>60); Globulin 3.6 g/dL (1.7-4.1); Glucose 123 mg/dL (70-99); HEMOLYSIS < 15 (0-50); Potassium 3.7 mmol/L (3.4-5.1); Sodium 141 mmol/L (137-145); Total Protein 8.6 g/dL (6.3-8.2)
[2025-01-26 08:58] LABS: Add Manual Diff / Slide Review NO; Hematocrit 44.9 % (36-46); Hemoglobin 15.4 g/dL (12.0-16.0); Lymphocytes Absolute Auto 2800 /uL (1100-4500); Mean Corpuscular HGB Conc 34.3 % (30-36); Mean Corpuscular Hemoglobin 31.4 PG (26-34); Mean Corpuscular Volume 91.4 fL (80-100); Platelet Count 228 X10^3/uL (150-400)
== END 2025-01-26 08:45 | disposition left against medical advice (07) ==
PROVIDERS: Emergency Provider Family Medicine; PCP Family Medicine
DX: R10.11 Right upper quadrant pain (principal); R42 Dizziness and giddiness
CPT/HCPCS: 36415; 80053; 85025; 85610; 85730; 86850; 86900; 86901; 99283